=== PATIENT | female | born 1945 | race Caucasian/White ===

== ENCOUNTER → 2019-08-17 11:28 | Outpatient (CLI) | payer MEDICARE, OTHER, SELFPAY ==
--- NOTE | 2019-08-17 | DI.MRI.S_ITS ---
PROCEDURE: MR LUMBAR SPINE WO CON INDICATIONS: Abnormal immunological findings in cerebrospinal f TECHNIQUE: Noncontrast sagittal T1 spin echo and T2 fast echo, sagittal STIR, axial T1 and T2 fast spin echo through the lumbar spine. In cases with scoliosis, additional coronal T2 fast spin echo may be performed. Additional STIR images were performed through the sacrum. COMPARISON: [facility], MR, MR HEAD/BRAIN WO CON, 08/17/2019, 11:56. [facility], CT, CT CHEST WO CON, 08/17/2019, 12:43. FINDINGS: Image quality: Diagnostic, with note made of motion artifact. Alignment and Curvature: There is normal bony alignment. Bone Marrow: There is diffuse loss of the normal fatty marrow signal on T1-weighted images. At the T12 level, there is a compression deformity seen, with 60% loss of height centrally. There is posterior displacement of fracture fragments of 3 mm. There is slightly increased STIR signal seen within this vertebral body, and this is most likely a subacute fracture. Generalized irregularity can be seen on the sacrum and the visualized iliac bones. No acute vertebral body compression fractures. Spinal Cord: Conus medullaris terminates at the L1 level. Visualized cord demonstrates normal signal and size. Paraspinous Soft Tissues: Numerous rounded liver lesions are seen, which measure up to 3.5 cm. A presumed left renal cyst is seen medially measuring up to 1.5 centimeters. There is partial visualization of a 5 cm abdominal aortic aneurysm. T12-L1: No significant abnormality is seen. L1-L2: The disc height and disc signal are relatively well-preserved. Mild disc bulge is seen, with a central/right disc protrusion. No significant neural foraminal narrowing is seen. Mild central canal narrowing is seen. L2-L3: The disc height is well-preserved. Loss of disc signal is seen at this level. Mild disc bulges seen, with a mild central/right disc protrusion. There is moderate right-sided and mild to moderate left-sided neural foraminal narrowing seen. At least moderate central canal narrowing is seen. L3-L4: The disc height and disc signal are relatively well-preserved. Moderate generalized disc bulge is seen. There is moderate to prominent left-sided and moderate right-sided facet hypertrophy seen. Moderate bilateral neural foraminal narrowing is seen. Moderate central canal narrowing is seen. L4-L5: The disc height and disc signal are relatively well-preserved. Moderate spondylosis is seen, with a central disc protrusion. Moderate to prominent facet hypertrophy is seen. There is at least moderate bilateral neural foraminal narrowing seen, left worse than right. Moderate central canal narrowing is seen. L5-S1: The disc height and disc signal are relatively well-preserved. Mild generalized disc bulge is seen. Mild to moderate facet hypertrophy is seen. No significant neural foraminal or central canal narrowing can be seen. IMPRESSION: Diffuse metastatic disease until proven otherwise. Given the pulmonary findings, this is most likely a lung primary. Rounded liver lesions are seen, which are highly suspicious for metastatic disease. Please consider a dedicated CT of the abdomen pelvis with IV and oral contrast for further evaluation. T12 compression deformity, with 60% loss of height centrally. This is most likely subacute in nature. Multiple levels of degenerative change are seen. Note: Case discussed by telephone with Jeannine, medical reception for Dr. Silva at 12:31 PM [place] time on August 17, 2019. Dictated by: Ranjit Ku M.D. on 08/17/2019 at 12:24 Approved by: Ranjit Ku M.D. on 08/17/2019 at 12:33
--- NOTE | 2019-08-17 | DI.MRI.S_ITS ---
PROCEDURE: MR HEAD/BRAIN WO CON INDICATIONS: Abnormal immunological findings in cerebrospinal f TECHNIQUE: Non-contrast axial T1 spin echo, axial T2 fast spin echo, sagittal and axial FLAIR, coronal T2 fast spin echo, axial gradient echo, axial diffusion and ADC through the brain. COMPARISON: [facility], MR, MR LUMBAR SPINE WO CON, 08/17/2019, 12:18. [facility], CT, CT CHEST WO CON, 08/17/2019, 12:43. FINDINGS: Image quality: This examination is limited by involuntary motion artifact. CSF spaces: There is partial effacement of the posterior of the right lateral ventricle. Basal cisterns are patent. No extra-axial fluid collections. Brain: Within the left lateral anterior cerebellar hemisphere, there is a focus of edema seen and measures up to 2.5 cm. There is restricted diffusion seen within this focus, with associated dark signal on the accompanying ADC map, which is consistent with dense cellularity. Within the right posterior cerebral hemisphere, centered within the right frontal/parietal region, there is a cystic mass seen that measures 5 x 3 x 4.4 cm. Surrounding edema is seen. The posterior horn of the right lateral ventricle is partially effaced. No definite associated midline shift can be seen. No intracranial bleeds. There is cerebral volume loss for age. There are periventricular and deep white matter chronic small vessel ischemic changes. Brainstem appears normal. Diffusion-weighted images show no acute ischemic insults. Normal intravascular flow voids are present. Skull and face: Calvarial bone marrow is normal in signal. Orbits are normal. Sinuses: Sinuses and mastoids are clear. IMPRESSION: 2.5 cm focus of abnormal brain edema involving the left cerebellar hemisphere, which is highly suspicious for metastatic disease given the pulmonary findings. There is a 5 cm cystic mass seen involving the posterior aspect of the right cerebral hemisphere, centered within the right frontoparietal region. This likely also represents a metastatic disease. If clinically appropriate, please consider a followup contrast enhanced MRI examination. Dictated by: Ranjit Ku M.D. on 08/17/2019 at 12:09 Approved by: Ranjit Ku M.D. on 08/17/2019 at 12:24
--- NOTE | 2019-08-17 13:00 | DI.CT.S_ITS ---
PROCEDURE: CT CHEST WO CON INDICATIONS: Abnormal immunological findings in cerebrospinal fluid TECHNIQUE: Noncontrast 5 mm thick sections acquired from the pulmonary apices to the posterior costophrenic angles. 1 mm lung window, 5 mm thick coronal and sagittal and 7 mm axial MIP reformats were then acquired. For radiation dose reduction, the following was used: automated exposure control, adjustment of mA and/or kV according to patient size. COMPARISON: [facility], MR, MR LUMBAR SPINE WO CON, 08/17/2019, 12:18. [facility], CR, XR LUMBAR SPINE 2 OR 3 VIEWS, 08/09/2019, 15:04. [facility], CR, DEXA AXIAL SKELETON, 07/02/2016, 14:04. FINDINGS: Image quality: Excellent. Lungs and pleura: There is a spiculated right apical mass which measures 1.6 x 2.2 x 2.7 cm. There is severe centrilobular emphysema with an apical predominance. A centrally cavitary lesion is present within the posterior right apex which measures 0.5 cm in diameter (series 3/image 54). There is a right hilar mass which measures 3.0 x 2.4 x 2.5 cm. A 5 mm pulmonary nodule is present at the posterior right lower lobe (series 3/image 180). A 5 mm pulmonary nodule is present at the right lung base (series 3/image 273). There is a 9 mm diameter pulmonary nodule within the superior segment of the right lower lobe (series 3/image 149). Paraseptal emphysema is present at the posterior lung bases bilaterally. No acute airspace opacities. No pleural effusion or pneumothorax. Mediastinum: Heart size is normal. No pericardial effusion. No mediastinal adenopathy by size criteria. Thoracic aorta and central pulmonary arteries are normal in size. Scattered atheromatous calcifications are present within the aortic arch. Esophagus is normal in caliber. No hiatal hernia. Bones and chest wall: No suspicious bony lesions. Severe compression deformity at T12 is present with approximately 90% vertebral body height loss. No axillary or supraclavicular adenopathy by size criteria. Thyroid gland is unremarkable. Abdomen: The liver is diffusely enlarged with innumerable hypodense ill-defined mass lesions suspicious for diffuse metastasis. In the absence of contrast the upper abdomen is otherwise grossly unremarkable. IMPRESSION: 1. 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 2. Right lower lobe pulmonary nodule which may represent a small pulmonary metastasis. 3. Severe compression deformity at T12. Decub view of this finding is unknown. Pathologic fracture should be considered in the differential. 4. Innumerable hepatic metastases which are incompletely characterized. CT of the abdomen and pelvis with oral and IV contrast recommended to evaluate the extent of disease. Dictated by: Sudha Khanna M.D. on 08/17/2019 at 14:38 Approved by: Sudha Khanna M.D. on 08/17/2019 at 14:48
== END ==
PROVIDERS: PCP Physician Assistant; Referring Provider Internal Medicine; Visit Provider Internal Medicine
DX: C78.7 Secondary malignant neoplasm of liver and intrahepatic bile duct (principal); C79.51 Secondary malignant neoplasm of bone; R91.8 Other nonspecific abnormal finding of lung field; G93.6 Cerebral edema; G93.9 Disorder of brain, unspecified; J43.2 Centrilobular emphysema; R83.4 Abnormal immunological findings in cerebrospinal fluid; M54.5 Low back pain; I70.0 Atherosclerosis of aorta; M43.8X4 Other specified deforming dorsopathies, thoracic region; M47.816 Spondylosis without myelopathy or radiculopathy, lumbar region
CPT/HCPCS: 70551; 71250; 72148

== ENCOUNTER → 2019-08-18 14:09 | Outpatient (CLI) | payer MEDICARE, OTHER, SELFPAY ==
--- NOTE | 2019-08-18 | DI.CT.S_ITS ---
PROCEDURE: CT ABDOMEN PELVIS W CON INDICATIONS: Other nonspecific abnormal finding of lung field TECHNIQUE: After the administration of oral and intravenous contrast, 5 mm thick sections acquired from the diaphragms to the symphysis. 5 mm thick coronal and sagittal reformats were performed. For radiation dose reduction, the following was used: automated exposure control, adjustment of mA and/or kV according to patient size. COMPARISON: [facility], MR, MR LUMBAR SPINE WO CON, 08/17/2019, 12:18. [facility], CT, CT CHEST WO CON, 08/17/2019, 12:43. FINDINGS: Image quality: Excellent. ABDOMEN: Lung bases: Mild subpleural nodularity can be seen within the lower lobes. Emphysematous changes are seen at the lung bases. Heart size is normal. Solid organs: Innumerable poorly enhancing liver masses are seen, which measure up to 3.3 cm. Most of these lesions demonstrate rim enhancement. A few subcentimeter low-density splenic lesions are also seen. Gallbladder wall does not appear thickened. Biliary system is non-dilated. Pancreas enhances normally. Generalized fullness can be seen of the adrenal glands. Kidneys are normal in size and enhancement, without hydronephrosis. Peritoneum and bowel: Stomach, small bowel, and colon loops are normal in caliber and wall thickness. No free fluid or air. Prominent stool can be seen within the colon. Nodes and vessels: No retroperitoneal or mesenteric adenopathy. The IVC demonstrates normal caliber. There is a bilobed abdominal aortic aneurysm seen that measures 5.3 cm AP and 5.2 cm transversely, with a craniocaudal extent of 9.8 cm. Atherosclerotic calcification is noted. Miscellaneous: No ventral hernias. PELVIS: Genitourinary: Bladder wall thickness is normal. Miscellaneous: No inguinal hernias or adenopathy. Bones: No suspicious bony lesions. No vertebral body compression fractures. Mild levoconvex scoliotic curvature is noted. Diffuse bony irregularity is seen. There is a compression deformity seen involving the T12 level, with at least 50% loss height centrally and 3 mm posterior displacement fracture fragments. Degenerative changes are seen, which are most prominent anteriorly. IMPRESSION: Diffuse metastatic disease until proven otherwise, with innumerable liver masses that measure up to 3.3 cm. Potential splenic metastases are seen as well. Generalized fullness is seen of the adrenal glands, which may represent additional metastatic disease. Diffuse bony metastatic disease is seen, with a pathologic T12 fracture. The metastatic disease is much better seen on the recent prior lumbar spine MRI examination. Abdominal aortic aneurysm, which measures up to 5.3 cm AP. There is a moderate amount of stool seen within the colon. Please correlate with an underlying history of constipation. Emphysematous changes and mild subpleural nodularity seen at the lung bases. Dictated by: Ranjit Ku M.D. on 08/18/2019 at 15:20 Approved by: Ranjit Ku M.D. on 08/18/2019 at 15:26
== END ==
PROVIDERS: PCP Physician Assistant; Referring Provider Internal Medicine; Visit Provider Internal Medicine
DX: R91.8 Other nonspecific abnormal finding of lung field (principal); C79.51 Secondary malignant neoplasm of bone; C78.7 Secondary malignant neoplasm of liver and intrahepatic bile duct; C80.1 Malignant (primary) neoplasm, unspecified; M84.58XA Pathological fracture in neoplastic disease, other specified site, initial encounter for fracture; I71.4 Abdominal aortic aneurysm, without rupture
CPT/HCPCS: 74177; Q9967

== ENCOUNTER → 2019-08-20 11:10 | Outpatient (CLI) | payer MEDICARE, OTHER, SELFPAY ==
--- NOTE | 2019-08-20 | DI.NM.S_ITS ---
PROCEDURE: NM BONE SCAN WHOLE BODY RADIOPHARMACEUTICAL: 21.5 mCi Tc-99m MDP IV. INDICATIONS: LUNG MASS TECHNIQUE: Delayed whole-body scintigrams were obtained approximately 3-4 hours after intravenous injection of radiotracer. Anterior and posterior views were acquired from vertex to feet. COMPARISON: [facility], CT, CT CHEST WO CON, 08/17/2019, 12:43. [facility], CT, CT ABDOMEN PELVIS W CON, 08/18/2019, 15:11. FINDINGS: Multiple thoracic and lumbar spine areas of tracer uptake could be related to facet degeneration. However, subtle uptake involving the right ischial tuberosity, proximal right femur, suspicious for osseous metastatic disease. Right upper cervical spine tracer activity could be facet degeneration although could be confirmed with dedicated anatomic imaging. Asymmetric tracer uptake involving the right sacroiliac joint, could be degenerative or inflammatory arthropathy. Technically, differential includes insufficiency fracture. No definite correlating lesion seen on the comparison CT. Nonspecific paranasal tracer activity IMPRESSION: Focal tracer activity involving the proximal right femur, as well as the right ischial tuberosity, suspicious for metastatic disease although not definitely confirmed on the comparison CT (the right femur lesion may be out of examination [id number]). Dedicated anatomic imaging with MRI could be performed for confirmation. Additional tracer uptake seen throughout the spine probably degenerative in nature Dictated by: Harvinder Quigley M.D. on 08/20/2019 at 16:31 Approved by: Harvinder Quigley M.D. on 08/20/2019 at 16:47
== END ==
PROVIDERS: PCP Physician Assistant; Referring Provider Internal Medicine; Visit Provider Internal Medicine
DX: R91.8 Other nonspecific abnormal finding of lung field (principal); M89.9 Disorder of bone, unspecified
CPT/HCPCS: 78306; A9503